=== PATIENT | female | born 1960 | race Caucasian/White ===

== ENCOUNTER → 2017-08-17 | Outpatient (CLI) | payer MEDICARE, MEDICAID ==
[2017-08-17 14:52] LABS: BASO % 0.4 % (0.0-1.0); EOS # 0.1 10^3/uL (0.0-0.50); EOS % 2.4 % (0.0-3.0); HEMATOCRIT 39.7 % (36.0-47.0); HEMOGLOBIN 13.4 g/dl (12.0-16.0); IMMATURE GRANULOCYTE % 0.4 % (0-0); LYMPH # 1.2 10^3/uL (1.5-4.5); LYMPH % 25.8 % (24.0-44.0); MEAN CORPUSCULAR HEMOGLOBIN 31.7 pg (27.0-33.0); MEAN CORPUSCULAR HGB CONC 33.8 g/dl (32.0-36.5); MEAN CORPUSCULAR VOLUME 93.9 fl (80.0-96.0); MONO # 0.5 10^3/uL (0.0-0.8); MONO % 10.7 % (0.0-5.0); NEUTROPHILS # 2.7 10^3/uL (1.8-7.7); NEUTROPHILS % 60.3 % (36.0-66.0); PLATELET COUNT, AUTOMATED 333 10^3/uL (150-450); RED BLOOD COUNT 4.23 10^6/uL (4.00-5.40); RED CELL DISTRIBUTION WIDTH 12.9 % (11.5-14.5); WHITE BLOOD COUNT 4.5 10^3/uL (4.0-10.0)
[2017-08-17 15:22] LABS: ALBUMIN 3.9 GM/DL (3.2-5.2); ALBUMIN/GLOBULIN RATIO 1.08 (1.00-1.93); ALKALINE PHOSPHATASE 114 U/L (45-117); ALT/SGPT 15 U/L (12-78); ANION GAP 6 MEQ/L (8-16); AST/SGOT 14 U/L (7-37); BILIRUBIN,TOTAL 0.4 MG/DL (0.2-1.0); BLOOD UREA NITROGEN 21 MG/DL (7-18); CALCIUM LEVEL 9.8 MG/DL (8.5-10.1); CARBON DIOXIDE LEVEL 29 MEQ/L (21-32); CHLORIDE LEVEL 106 MEQ/L (98-107); CREATININE FOR GFR 1.12 MG/DL (0.55-1.02); GLOMERULAR FILTRATION RATE 53.2 (>51); GLUCOSE, FASTING 93 MG/DL (70-100); SODIUM LEVEL 141 MEQ/L (136-145); TOTAL PROTEIN 7.5 GM/DL (6.4-8.2)
== END ==
LOC: M LAB 14:16
DX: C50.919 Malignant neoplasm of unspecified site of unspecified female breast (principal)
CPT/HCPCS: 80053

== ENCOUNTER 2017-08-25 19:23 | Emergency (ER) | payer MEDICARE, MEDICAID ==
[2017-08-25 21:47] LABS: BASO % 0.2 % (0.0-1.0); HEMOGLOBIN 12.3 g/dl (12.0-16.0); IMMATURE GRANULOCYTE # 0.1 10^3/uL (0-0); IMMATURE GRANULOCYTE % 0.5 % (0-0); LYMPH # 0.6 10^3/uL (1.5-4.5); LYMPH % 5.5 % (24.0-44.0); MEAN CORPUSCULAR HEMOGLOBIN 31.5 pg (27.0-33.0); MEAN CORPUSCULAR HGB CONC 33.2 g/dl (32.0-36.5); MEAN CORPUSCULAR VOLUME 94.6 fl (80.0-96.0); MONO # 0.4 10^3/uL (0.0-0.8); MONO % 3.2 % (0.0-5.0); NEUTROPHILS % 90.6 % (36.0-66.0); PLATELET COUNT, AUTOMATED 254 10^3/uL (150-450); RED BLOOD COUNT 3.91 10^6/uL (4.00-5.40); RED CELL DISTRIBUTION WIDTH 13.2 % (11.5-14.5)
[2017-08-25 22:07] LABS: ALBUMIN 3.4 GM/DL (3.2-5.2); ALBUMIN/GLOBULIN RATIO 0.77 (1.00-1.93); ALKALINE PHOSPHATASE 93 U/L (45-117); ALT/SGPT 13 U/L (12-78); ANION GAP 8 MEQ/L (8-16); AST/SGOT 12 U/L (7-37); BILIRUBIN,TOTAL 0.4 MG/DL (0.2-1.0); BLOOD UREA NITROGEN 18 MG/DL (7-18); CALCIUM LEVEL 9.2 MG/DL (8.5-10.1); CARBON DIOXIDE LEVEL 27 MEQ/L (21-32); CHLORIDE LEVEL 98 MEQ/L (98-107); CREATININE FOR GFR 1.26 MG/DL (0.55-1.30); GLOMERULAR FILTRATION RATE 46.4 (>51); GLUCOSE, FASTING 101 MG/DL (70-100); POTASSIUM SERUM 3.8 MEQ/L (3.5-5.1); SODIUM LEVEL 133 MEQ/L (136-145); TOTAL PROTEIN 7.8 GM/DL (6.4-8.2)
[2017-08-25 22:11] LABS: ERYTHROCYTE SEDIMENTATION RATE 57 mm/hr (0-30)
[2017-08-25] MEDS: CEPHALEXIN 500 MG CAP PO (22:50)
== END 2017-08-25 22:55 | disposition home or self-care (01) ==
LOC: M ED 19:23
DX: I97.2 Postmastectomy lymphedema syndrome (principal); Z85.3 Personal history of malignant neoplasm of breast; F17.200 Nicotine dependence, unspecified, uncomplicated; Z79.899 Other long term (current) drug therapy
CPT/HCPCS: 93971

== ENCOUNTER → 2018-06-23 | Outpatient (CLI) | payer MEDICARE, MEDICAID ==
[2018-06-23 10:36] LABS: BASO % 0.4 % (0.0-1.0); EOS # 0.1 10^3/uL (0.0-0.50); EOS % 2.5 % (0.0-3.0); HEMOGLOBIN 12.7 g/dl (12.0-15.5); IMMATURE GRANULOCYTE % 0.4 % (0-3.0); LYMPH # 1.3 10^3/uL (1.5-4.5); LYMPH % 23.3 % (24.0-44.0); MEAN CORPUSCULAR HGB CONC 33.4 g/dl (32.0-36.5); MEAN CORPUSCULAR VOLUME 95.7 fl (80.0-96.0); MONO # 0.6 10^3/uL (0.0-0.8); MONO % 10.5 % (0.0-5.0); NEUTROPHILS # 3.6 10^3/uL (1.8-7.7); NEUTROPHILS % 62.9 % (36.0-66.0); PLATELET COUNT, AUTOMATED 307 10^3/uL (150-450); RED BLOOD COUNT 3.97 10^6/uL (4.00-5.40); RED CELL DISTRIBUTION WIDTH 12.1 % (11.5-14.5); WHITE BLOOD COUNT 5.6 10^3/uL (4.0-10.0)
[2018-06-23 11:11] LABS: ALBUMIN 3.3 GM/DL (3.2-5.2); ALKALINE PHOSPHATASE 104 U/L (45-117); ALT/SGPT 12 U/L (12-78); ANION GAP 6 MEQ/L (8-16); AST/SGOT 11 U/L (7-37); BILIRUBIN,TOTAL 0.2 MG/DL (0.2-1.0); BLOOD UREA NITROGEN 19 MG/DL (7-18); CALCIUM LEVEL 8.7 MG/DL (8.5-10.1); CARBON DIOXIDE LEVEL 29 MEQ/L (21-32); CHLORIDE LEVEL 106 MEQ/L (98-107); CREATININE FOR GFR 0.95 MG/DL (0.55-1.30); GLOMERULAR FILTRATION RATE > 60.0 (>51); GLUCOSE, FASTING 97 MG/DL (70-100); POTASSIUM SERUM 4.3 MEQ/L (3.5-5.1); SODIUM LEVEL 141 MEQ/L (136-145); TOTAL PROTEIN 6.6 GM/DL (6.4-8.2)
== END ==
LOC: M LAB 08:52
DX: C50.919 Malignant neoplasm of unspecified site of unspecified female breast (principal)
CPT/HCPCS: 80053

== ENCOUNTER → 2018-10-18 | Outpatient (CLI) | payer MEDICARE, MEDICAID ==
[~2018-10-18] MED LIST: ANAS1TAB2; CALCTAB28 PO; KEFL500C17 PO; TYLE500T78 PO
--- NOTE | 2018-10-18 14:19 | REP ---
Clinical: Right knee pain Technique: AP, lateral, bilateral oblique and sunrise views. Findings: The osseous structures and joint spaces are intact and normal for age. There is no evidence for acute fracture or dislocation. No joint effusion is appreciated. Surrounding soft tissues are unremarkable. No subcutaneous emphysema or radiodense foreign body. Impression: Age-appropriate examination. No overt osteoarthritic degenerative changes are appreciated. Electronically Signed by Cooper Machado MD 10/18/2018 02:10 P
== END ==
LOC: M WUC 13:42
PROVIDERS: ATTEND Internal Medicine
DX: M25.561 Pain in right knee (principal)

== ENCOUNTER → 2018-11-04 | Outpatient (CLI) | payer MEDICARE, MEDICAID ==
[2018-11-04 17:36] LABS: ALBUMIN 3.6 GM/DL (3.2-5.2); ALT/SGPT 15 U/L (12-78); BILIRUBIN,TOTAL 0.3 MG/DL (0.2-1.0); BLOOD UREA NITROGEN 17 MG/DL (7-18); CALCIUM LEVEL 9.4 MG/DL (8.5-10.1); CARBON DIOXIDE LEVEL 27 MEQ/L (21-32); CHLORIDE LEVEL 107 MEQ/L (98-107); GLOMERULAR FILTRATION RATE > 60.0 (>51); GLUCOSE, FASTING 91 MG/DL (70-100); SODIUM LEVEL 140 MEQ/L (136-145)
[2018-11-04 17:37] LABS: BASO % 0.3 % (0.0-1.0); EOS # 0.2 10^3/uL (0.0-0.50); EOS % 2.2 % (0.0-3.0); HEMATOCRIT 37.8 % (36.0-47.0); HEMOGLOBIN 12.6 g/dl (12.0-15.5); LYMPH # 1.3 10^3/uL (1.5-4.5); LYMPH % 18.9 % (24.0-44.0); MEAN CORPUSCULAR HEMOGLOBIN 31.7 pg (27.0-33.0); MEAN CORPUSCULAR HGB CONC 33.3 g/dl (32.0-36.5); MEAN CORPUSCULAR VOLUME 95.2 fl (80.0-96.0); MONO # 0.6 10^3/uL (0.0-0.8); MONO % 9.2 % (0.0-5.0); NEUTROPHILS # 4.7 10^3/uL (1.8-7.7); NEUTROPHILS % 68.4 % (36.0-66.0); PLATELET COUNT, AUTOMATED 350 10^3/uL (150-450); RED BLOOD COUNT 3.97 10^6/uL (4.00-5.40); WHITE BLOOD COUNT 6.8 10^3/uL (4.0-10.0)
== END ==
LOC: M WUC 14:03
PROVIDERS: ATTEND Internal Medicine
DX: C50.919 Malignant neoplasm of unspecified site of unspecified female breast (principal); Z81.0 Family history of intellectual disabilities

== ENCOUNTER → 2018-11-10 | Outpatient (CLI) | payer MEDICARE, MEDICAID ==
[~2018-11-10] MED LIST changes: +ISOVUE-370 76% 100ML VIAL (Q9967) As Ordered ONE
--- NOTE | 2018-11-11 08:17 | REP ---
CT HEAD WITHOUT AND WITH CONTRAST: HISTORY: Headache. CONTRAST: Isovue 370, 75 mL. The patient is status post right temporoparietal craniotomy. An area of decreased attenuation is present in the right temporal lobe. There is dilatation of the overlying cortical sulci and body , atrium and temporal horn of the right lateral ventricle. This represents encephalomalacia. There is no intraparenchymal hemorrhage, mass or midline shift. There is no abnormal enhancement. There is no hydrocephalus or extracerebral collection. The visualized sinuses are clear. IMPRESSION: Right temporal lobe encephalomalacia. Electronically Signed by Anderson Harper MD 11/11/2018 08:22 A
== END ==
LOC: M RAD 17:02
PROVIDERS: ATTEND Internal Medicine
DX: G93.89 Other specified disorders of brain (principal); Z85.3 Personal history of malignant neoplasm of breast
CPT/HCPCS: 70470; Q9967

== ENCOUNTER → 2018-12-06 | Outpatient (CLI) | payer MEDICARE, MEDICAID ==
[~2018-12-06] MED LIST changes: -ISOVUE-370 76% 100ML VIAL (Q9967) As Ordered ONE
[2018-12-06 17:35] LABS: CREATININE FOR GFR 1.08 MG/DL (0.55-1.30); GLOMERULAR FILTRATION RATE 55.3 (>51); THYROID STIMULATING HORMONE 1.53 uIU/ML (0.358-3.740)
== END ==
LOC: M WUC 14:42
PROVIDERS: ATTEND Internal Medicine
DX: F41.1 Generalized anxiety disorder (principal)

== ENCOUNTER → 2018-12-10 | Outpatient (CLI) | payer MEDICARE, MEDICAID ==
[~2018-12-10] MED LIST changes: +PROHANCE 279.3MG/ML 15ML VIAL (A9576) As Ordered ONE
--- NOTE | 2018-12-11 08:15 | REP ---
REASON: Assess for hydronephrosis. PRIORS: None. Right kidney measures 9.1 x 4.9 x 5.2 cm. The renal cortical echoes are normal. Corticomedullary differentiation is preserved. There are no cystic or solid masses. There is no hydronephrosis. The left kidney measures 6.7 x 4.2 x 3.7 cm. There is a large anechoic area to the renal pelvis which measures 5.1 x 4.2 x 4.4 cm. There is no evidence of concomitant caliceal dilatation. This anechoic area cannot be definitively connected to the proximal ureter. IMPRESSION: 1. Atrophic left kidney. 2. Large parapelvic cyst versus chronic hydronephrosis. MRI before and after intravenous Gadolinium is recommended. Electronically Signed by Lazaro Carcamo DO 12/11/2018 08:33 A
--- NOTE | 2018-12-21 11:15 | REP ---
MRI RIGHT KNEE WITH AND WITHOUT CONTRAST: TECHNIQUE: Axial proton density fat saturation, sagittal proton density T2 STIR, water excitation, coronal proton density, proton density fat saturation. T1 fat sat, post IV gadolinium, axial, coronal T1 fat sat with the intravenous administration of 6 mL ProHance. Correlation plain films 10/18/2018 and bone scan 11/16/2018. There is a tear of the posterior horn of a medial meniscus. There is a 4 mm meniscal cyst at the posteromedial margin of that portion of the meniscus. The lateral meniscus is intact. The cruciate and collateral ligaments are intact. The extensor mechanism is intact. Medial and lateral patellar retinacula are intact. There is mild global chondromalacia. There is moderate to severe chondromalacia of the medial patellar facet. An area of serpiginous mixed signal in the posterior aspect of the left medial femoral condyles consistent with an area of bone infarct. No abnormal bone marrow signal activity or bone marrow enhancement is seen. There is a small joint effusion. There is an oval popliteal cyst medially measuring approximately 3.8 x 1.5 x 2.8 cm. No abnormal soft tissue enhancement is seen. IMPRESSION: Tear of the posterior horn of the medial meniscus. There is a 4 mm meniscal cyst at the posterior margin of this portion of the meniscus. Cruciate and collateral ligaments intact. Mild global chondromalacia. There is moderate to severe chondromalacia of the medial patellar facet. Small bone infarct, posterior aspect of medial femoral condyle. Small joint effusion. Popliteal cyst. Please note this study is limited due to patient motion. Electronically Signed by Anderson Sabillon MD 12/21/2018 04:13 P
== END ==
LOC: M RAD 16:30
PROVIDERS: ATTEND Internal Medicine
DX: M23.000 Cystic meniscus, unspecified lateral meniscus, right knee (principal); M94.261 Chondromalacia, right knee; N26.1 Atrophy of kidney (terminal); Z81.0 Family history of intellectual disabilities; C50.919 Malignant neoplasm of unspecified site of unspecified female breast
CPT/HCPCS: 73723; 76775; A9576

== ENCOUNTER → 2019-01-06 | Outpatient (CLI) | payer MEDICARE, MEDICAID ==
[~2019-01-06] MED LIST changes: -PROHANCE 279.3MG/ML 15ML VIAL (A9576) As Ordered ONE
--- NOTE | 2019-01-11 09:52 | DEXA ---
AP SPINE L1 - L4 1.054 -1.1 0.0 LT FEMUR TOTAL 0.849 -1.3 -0.4 LT NECK 0.762 -2.0 -0.8 RT FEMUR TOTAL 0.889 -0.9 0.0 RT NECK 0.808 -1.7 -0.4 TOTAL BODY TOTAL OTHER COMMENTS: There is low bone density of the spine and hips. The density of the spine has increased 5.6% since the initial exam on 07/16/2015. The spine density has decreased 2.2% since the most recent exam on or 11/13/2016. The density of the left hip has increased 3.8% since the initial exam on 08/16/2014. The density of the left hip has increased 1.1% since the recent exam on 11/13/2016 The density of the right hip has increased 7.2% since the initial exam on 08/16/2014. The density of the right hip has increased 8.7% since the most recent exam on 11/13/2016. FOLLOW-UP: Recommendation for the next bone density exam: 2 years. MARIBEL
== END ==
LOC: M WHC 09:27
PROVIDERS: ATTEND Physician Assistant
DX: C50.919 Malignant neoplasm of unspecified site of unspecified female breast (principal); M81.0 Age-related osteoporosis without current pathological fracture

== ENCOUNTER → 2019-03-11 | Outpatient (CLI) | payer MEDICARE, MEDICAID ==
[2019-03-11 17:11] LABS: CALCIUM LEVEL 9.2 MG/DL (8.5-10.1); CREATININE FOR GFR 1.11 MG/DL (0.55-1.30); GLOMERULAR FILTRATION RATE 53.6 (>51); POTASSIUM SERUM 4.4 MEQ/L (3.5-5.1)
== END ==
LOC: M WUC 13:21
PROVIDERS: ATTEND Nurse Practitioner Women's Health
DX: Q61.00 Congenital renal cyst, unspecified (principal); N26.1 Atrophy of kidney (terminal)

== ENCOUNTER → 2019-03-16 | Outpatient (CLI) | payer MEDICARE, MEDICAID ==
[~2019-03-16] MED LIST changes: +ISOVUE-370 76% 100ML VIAL (Q9967) As Ordered ONE
--- NOTE | 2019-03-16 11:35 | REP ---
REASON FOR EXAM: History of renal atrophy. I have no priors for comparison. There is no common view available at this time for review of outside priors if available. If and when outside priors become available an addendum report will be made if necessary. CONTRAST: [address] urogram was obtained with post processing at the physician workstation. The lung bases show minimal inferior right middle lobe fibrotic changes. The precontrast enhanced portion of the examination shows no evidence of nephroureterolithiasis. There are no choleliths. There are no urinary or bladder calcifications. There are bilateral pelvic phleboliths. There is a large low density structure arising from the inferior pole of the left kidney which measures 4.4 cm and has water Hounsfield unit readings. The contrast enhanced portion of the exam shows no evidence of an enhancing renal mass. There is evidence of mild left renal cortical thinning. The liver, gallbladder, spleen, pancreas, and adrenal glands are within normal limits. The abdominal aorta and paraaortic regions are within normal limits. There is no free fluid or free air. The bowel loops and their mesenteries are within normal limits. There is no evidence of an intra-abdominal mass or adenopathy. CT urogram shows no hydronephrosis. The lower ureters were not imaged on either side. There is no hydronephrosis. There is some deformation of the left renal lower collecting system due to the large cyst. Incidental note is made of a subcentimeter sized cyst in the superior pole of the left kidney as well. IMPRESSION: 1. There are no enhancing renal masses. 2. There are no urinary tract calcifications. 3. There is a large left renal cyst which is of Bosniak class I characterization. There is some left renal cortical thinning. The large cyst does somewhat compress the left renal pelvis. 4. No acute intra-abdominal or intrapelvic disease with findings as described above. Electronically Signed by Lazaro Carcamo DO 03/16/2019 12:39 P
== END ==
LOC: M RAD 08:35
PROVIDERS: ATTEND Nurse Practitioner Women's Health
DX: N28.81 Hypertrophy of kidney (principal); N28.1 Cyst of kidney, acquired
CPT/HCPCS: 74178; Q9967

== ENCOUNTER → 2020-05-07 | Outpatient (CLI) | payer MEDICARE, MEDICAID ==
[~2020-05-07] MED LIST changes: -ISOVUE-370 76% 100ML VIAL (Q9967) As Ordered ONE
[2020-05-07 12:46] LABS: BASO % 0.3 % (0.0-1.0); EOS # 0.2 10^3/uL (0.0-0.5); EOS % 2.4 % (0.0-3.0); HEMATOCRIT 37.7 % (36.0-47.0); HEMOGLOBIN 12.2 g/dl (12.0-15.5); LYMPH # 1.6 10^3/uL (1.5-5.0); LYMPH % 22.2 % (24.0-44.0); MEAN CORPUSCULAR HEMOGLOBIN 30.8 pg (27.0-33.0); MEAN CORPUSCULAR HGB CONC 32.4 g/dl (32.0-36.5); MEAN CORPUSCULAR VOLUME 95.2 fl (80.0-96.0); MONO # 0.8 10^3/uL (0.0-0.8); MONO % 11.9 % (0.0-5.0); NEUTROPHILS # 4.4 10^3/uL (1.5-8.5); NEUTROPHILS % 62.8 % (36.0-66.0); PLATELET COUNT, AUTOMATED 336 10^3/uL (150-450); RED BLOOD COUNT 3.96 10^6/uL (4.00-5.40)
[2020-05-07 13:08] LABS: ALBUMIN 3.4 GM/DL (3.2-5.2); BILIRUBIN,TOTAL 0.2 MG/DL (0.2-1.0); CALCIUM LEVEL 9.2 MG/DL (8.8-10.2); CREATININE FOR GFR 1.16 MG/DL (0.55-1.30); GLOMERULAR FILTRATION RATE 50.7 (>45); POTASSIUM SERUM 3.7 MEQ/L (3.5-5.1); TOTAL PROTEIN 6.7 GM/DL (6.4-8.2)
[2020-05-07 13:55] LABS: CA15-3 ANTIGEN 11.9 U/ML (<32.4)
== END ==
LOC: M WUC 09:05
PROVIDERS: ATTEND Internal Medicine Hematology & Oncology
DX: C50.919 Malignant neoplasm of unspecified site of unspecified female breast (principal); Z81.0 Family history of intellectual disabilities

== ENCOUNTER 2020-09-28 10:37 | Emergency (ER) | payer MEDICARE, MEDICAID ==
[~2020-09-28] VITALS: Ht 165.1 cm; Wt 70.7 kg
[2020-09-28] MEDS ORDERED: IBUP200T45 PO (11:13)
[2020-09-28] MEDS ORDERED: ATEN25TA PO (11:13)
[2020-09-28] MEDS: KETOROLAC TROMETHAMINE 10 MG TAB PO ONE ×2 (11:48→11:49)
[2020-09-28 11:51] LABS: BASO % 0.6 % (0.0-1.0); EOS # 0.2 10^3/uL (0.0-0.5); HEMATOCRIT 36.8 % (36.0-47.0); HEMOGLOBIN 12.4 g/dl (12.0-15.5); LYMPH # 1.1 10^3/uL (1.5-5.0); LYMPH % 21.6 % (24.0-44.0); MEAN CORPUSCULAR HEMOGLOBIN 31.7 pg (27.0-33.0); MEAN CORPUSCULAR HGB CONC 33.7 g/dl (32.0-36.5); MEAN CORPUSCULAR VOLUME 94.1 fl (80.0-96.0); MONO # 0.7 10^3/uL (0.0-0.8); MONO % 14.6 % (2.0-8.0); NEUTROPHILS % 59.8 % (36.0-66.0); PLATELET COUNT, AUTOMATED 328 10^3/uL (150-450); RED BLOOD COUNT 3.91 10^6/uL (4.00-5.40)
--- NOTE | 2020-09-28 12:07 | REP ---
INDICATION: hip pain COMPARISON: None. TECHNIQUE: AP and frog-lateral views of the left hip FINDINGS: No acute fracture or dislocation. Skeletal structures, joint spaces, and surrounding soft tissues are age-appropriate. IMPRESSION: Age-appropriate left hip radiographs. <Electronically signed by Cooper Machado > 09/28/20 [id number]
[2020-09-28] MEDS ORDERED: CYCL5TAB PO (12:40)
[2020-09-28 13:00] VITALS: BP 144/87
== END 2020-09-28 13:01 | disposition home or self-care (01) ==
LOC: M ED 10:37
DX: M54.32 Sciatica, left side (principal); M16.12 Unilateral primary osteoarthritis, left hip; S76.012A Strain of muscle, fascia and tendon of left hip, initial encounter; X58.XXXA Exposure to other specified factors, initial encounter; Y92.9 Unspecified place or not applicable; Y93.9 Activity, unspecified; Y99.9 Unspecified external cause status; I10 Essential (primary) hypertension; E78.5 Hyperlipidemia, unspecified; F17.200 Nicotine dependence, unspecified, uncomplicated; Z79.899 Other long term (current) drug therapy

== ENCOUNTER → 2020-11-12 | Outpatient (CLI) | payer MEDICARE, MEDICAID ==
[~2020-11-12] MED LIST changes: +ATEN25TA PO; +CYCL5TAB PO; +IBUP200T45 PO
[2020-11-12 09:57] LABS: APPEARANCE, URINE CLEAR (CLEAR); BACTERIA, URINE AUTO NEGATIVE (NEGATIVE); BILIRUBIN, URINE AUTO NEGATIVE (NEGATIVE); BLOOD, URINE BLOOD NEGATIVE (NEGATIVE); COLOR, URINE YELLOW (YELLOW); GLUCOSE, URINE (UA) AUTO NEGATIVE (NEGATIVE); KETONE, URINE AUTO NEGATIVE (NEGATIVE); LEUKOCYTE ESTERASE, URINE AUTO 3+ (NEGATIVE); NITRITE, URINE AUTO NEGATIVE (NEGATIVE); PROTEIN, URINE AUTO NEGATIVE (NEGATIVE); RBC, URINE AUTO 2 /HPF (0-3); SPECIFIC GRAVITY URINE AUTO 1.015 (1.002-1.035); UROBILINOGEN, URINE AUTO 0.2 mg/dL (0.0-2.0); WBC, URINE AUTO 26 /HPF (0-3)
[2020-11-12 09:58] LABS: SQUAMOUS EPITHELIAL CELL UR AU 0 /HPF (0-6)
[2020-11-12 10:09] LABS: HEMATOCRIT 39.5 % (36.0-47.0); HEMOGLOBIN 12.6 g/dl (12.0-15.5); MEAN CORPUSCULAR HGB CONC 31.9 g/dl (32.0-36.5); MEAN CORPUSCULAR VOLUME 97.3 fl (80.0-96.0); PLATELET COUNT, AUTOMATED 346 10^3/uL (150-450); RED BLOOD COUNT 4.06 10^6/uL (4.00-5.40); WHITE BLOOD COUNT 6.8 10^3/uL (4.0-10.0)
[2020-11-12 10:31] LABS: ALBUMIN 3.4 GM/DL (3.2-5.2); BILIRUBIN,TOTAL 0.4 MG/DL (0.2-1.0); CALCIUM LEVEL 10.2 MG/DL (8.8-10.2); CHOLESTEROL RISK RATIO 5.418 (<5); CREATININE FOR GFR 1.03 MG/DL (0.55-1.30); POTASSIUM SERUM 4.9 MEQ/L (3.5-5.1); THYROID STIMULATING HORMONE 3.97 uIU/ML (0.358-3.740); TOTAL PROTEIN 6.7 GM/DL (6.4-8.2)
== END ==
LOC: M WUC 08:26
PROVIDERS: ATTEND Internal Medicine
DX: E78.00 Pure hypercholesterolemia, unspecified (principal); I10 Essential (primary) hypertension; C50.919 Malignant neoplasm of unspecified site of unspecified female breast; F17.200 Nicotine dependence, unspecified, uncomplicated; J32.9 Chronic sinusitis, unspecified; B37.0 Candidal stomatitis; N76.1 Subacute and chronic vaginitis

== ENCOUNTER → 2021-07-08 | Outpatient (CLI) | payer MEDICARE, MEDICAID ==
[~2021-07-08] MED LIST changes: -IBUP200T45 PO; +IBUP200T46 PO
== END ==
LOC: M WHC 08:32
PROVIDERS: ATTEND Internal Medicine Hematology & Oncology
DX: M85.88 Other specified disorders of bone density and structure, other site (principal); R10.2 Pelvic and perineal pain; R30.0 Dysuria; C50.919 Malignant neoplasm of unspecified site of unspecified female breast; Z81.0 Family history of intellectual disabilities

== ENCOUNTER → 2021-07-15 | Outpatient (CLI) | payer MEDICARE, MEDICAID | LOC: M WUC 08:26 | PROVIDERS: ATTEND Internal Medicine Hematology & Oncology | DX: C50.919 Malignant neoplasm of unspecified site of unspecified female breast (principal); R10.2 Pelvic and perineal pain; R30.0 Dysuria; Z81.0 Family history of intellectual disabilities ==

== ENCOUNTER → 2022-01-13 | Outpatient (CLI) | payer MEDICARE, MEDICAID ==
[2022-01-13 15:38] LABS: BASO % 0.5 % (0.0-1.0); EOS # 0.1 10^3/uL (0.0-0.5); EOS % 2.5 % (0.0-3.0); HEMATOCRIT 38.5 % (36.0-47.0); HEMOGLOBIN 12.7 g/dl (12.0-15.5); LYMPH # 1.3 10^3/uL (1.5-5.0); LYMPH % 24.1 % (24.0-44.0); MEAN CORPUSCULAR HEMOGLOBIN 31.1 pg (27.0-33.0); MEAN CORPUSCULAR VOLUME 94.1 fl (80.0-96.0); MONO # 0.6 10^3/uL (0.0-0.8); MONO % 10.6 % (2.0-8.0); NEUTROPHILS # 3.4 10^3/uL (1.5-8.5); NEUTROPHILS % 61.9 % (36.0-66.0); PLATELET COUNT, AUTOMATED 460 10^3/uL (150-450); RED BLOOD COUNT 4.09 10^6/uL (4.00-5.40); WHITE BLOOD COUNT 5.6 10^3/uL (4.0-10.0)
[2022-01-13 15:56] LABS: CREATININE FOR GFR 1.03 MG/DL (0.55-1.30); GLOMERULAR FILTRATION RATE 57.8 (>45); POTASSIUM SERUM 4.6 MEQ/L (3.5-5.1)
[2022-01-13 15:57] LABS: ALBUMIN 3.3 GM/DL (3.2-5.2); BILIRUBIN,TOTAL 0.2 MG/DL (0.2-1.0); CALCIUM LEVEL 10.2 MG/DL (8.8-10.2); TOTAL PROTEIN 7.4 GM/DL (6.4-8.2)
[2022-01-13 16:49] LABS: CA15-3 ANTIGEN 13.1 U/ML (<32.4)
== END ==
LOC: M LAB 14:32
PROVIDERS: ATTEND Internal Medicine Hematology & Oncology
DX: R10.2 Pelvic and perineal pain (principal); R30.0 Dysuria; C50.919 Malignant neoplasm of unspecified site of unspecified female breast; Z81.0 Family history of intellectual disabilities

== ENCOUNTER → 2022-02-11 | Outpatient (CLI) | payer MEDICARE, MEDICAID ==
[~2022-02-11] MED LIST changes: +GASTROGRAFIN SOLUTION 30ML (Q9963) As Ordered ONE; +ISOVUE-370 76% 100ML VIAL As Ordered ONE
== END ==
LOC: M RAD 11:17
PROVIDERS: ATTEND Internal Medicine Hematology & Oncology
DX: K75.3 Granulomatous hepatitis, not elsewhere classified (principal); J84.10 Pulmonary fibrosis, unspecified; N28.1 Cyst of kidney, acquired; R10.2 Pelvic and perineal pain; R30.0 Dysuria; C50.919 Malignant neoplasm of unspecified site of unspecified female breast; Z81.0 Family history of intellectual disabilities
CPT/HCPCS: 74170; Q9963; Q9967

== ENCOUNTER → 2022-03-04 | Outpatient (CLI) | payer MEDICARE, MEDICAID ==
[~2022-03-04] MED LIST changes: -GASTROGRAFIN SOLUTION 30ML (Q9963) As Ordered ONE; -ISOVUE-370 76% 100ML VIAL As Ordered ONE
[2022-03-04 10:01] LABS: BASO % 0.5 % (0.0-1.0); EOS # 0.2 10^3/uL (0.0-0.5); EOS % 3.3 % (0.0-3.0); HEMATOCRIT 35.5 % (36.0-47.0); HEMOGLOBIN 11.5 g/dl (12.0-15.5); LYMPH # 1.7 10^3/uL (1.5-5.0); LYMPH % 29.5 % (24.0-44.0); MEAN CORPUSCULAR HEMOGLOBIN 30.7 pg (27.0-33.0); MEAN CORPUSCULAR HGB CONC 32.4 g/dl (32.0-36.5); MEAN CORPUSCULAR VOLUME 94.7 fl (80.0-96.0); MONO # 0.6 10^3/uL (0.0-0.8); MONO % 11.2 % (2.0-8.0); NEUTROPHILS # 3.2 10^3/uL (1.5-8.5); NEUTROPHILS % 55.3 % (36.0-66.0); PLATELET COUNT, AUTOMATED 407 10^3/uL (150-450); RED BLOOD COUNT 3.75 10^6/uL (4.00-5.40); WHITE BLOOD COUNT 5.7 10^3/uL (4.0-10.0)
[2022-03-04 10:42] LABS: ALBUMIN 3.2 GM/DL (3.2-5.2); BILIRUBIN,TOTAL 0.2 MG/DL (0.2-1.0); CALCIUM LEVEL 9.5 MG/DL (8.8-10.2); CHOLESTEROL RISK RATIO 6.181 (<5); CREATININE FOR GFR 1.05 MG/DL (0.55-1.30); GLOMERULAR FILTRATION RATE 56.5 (>45); POTASSIUM SERUM 4.4 MEQ/L (3.5-5.1); TOTAL PROTEIN 6.8 GM/DL (6.4-8.2)
== END ==
LOC: M WUC 08:14
PROVIDERS: ATTEND Student in an Organized Health Care Education/Training Program
DX: Z00.00 Encounter for general adult medical examination without abnormal findings (principal)

== ENCOUNTER → 2022-10-16 | Outpatient (CLI) | payer MEDICARE, MEDICAID | LOC: M WHC 07:29 | PROVIDERS: ATTEND Internal Medicine Hematology & Oncology | DX: C50.919 Malignant neoplasm of unspecified site of unspecified female breast (principal); R10.2 Pelvic and perineal pain; R30.0 Dysuria ==

== ENCOUNTER → 2022-11-03 | Outpatient (CLI) | payer MEDICARE, MEDICAID ==
[2022-11-03 10:48] LABS: BASO % 0.4 % (0.0-1.0); EOS # 0.2 10^3/uL (0.0-0.5); HEMATOCRIT 37.4 % (36.0-47.0); LYMPH # 1.6 10^3/uL (1.5-5.0); LYMPH % 16.8 % (24.0-44.0); MEAN CORPUSCULAR HEMOGLOBIN 30.7 pg (27.0-33.0); MEAN CORPUSCULAR HGB CONC 32.1 g/dl (32.0-36.5); MEAN CORPUSCULAR VOLUME 95.7 fl (80.0-96.0); MONO # 0.8 10^3/uL (0.0-0.8); MONO % 8.4 % (2.0-8.0); NEUTROPHILS % 72.1 % (36.0-66.0); PLATELET COUNT, AUTOMATED 315 10^3/uL (150-450); RED BLOOD COUNT 3.91 10^6/uL (4.00-5.40); WHITE BLOOD COUNT 9.7 10^3/uL (4.0-10.0)
[2022-11-03 10:58] LABS: APPEARANCE, URINE CLEAR (CLEAR); BACTERIA, URINE AUTO 1+ (NEGATIVE); BILIRUBIN, URINE AUTO NEGATIVE (NEGATIVE); BLOOD, URINE BLOOD NEGATIVE (NEGATIVE); COLOR, URINE YELLOW (YELLOW); GLUCOSE, URINE (UA) AUTO NEGATIVE (NEGATIVE); KETONE, URINE AUTO NEGATIVE (NEGATIVE); LEUKOCYTE ESTERASE, URINE AUTO 3+ (NEGATIVE); NITRITE, URINE AUTO NEGATIVE (NEGATIVE); PROTEIN, URINE AUTO NEGATIVE (NEGATIVE); RBC, URINE AUTO 2 /HPF (0-3); SPECIFIC GRAVITY URINE AUTO 1.016 (1.002-1.035); SQUAMOUS EPITHELIAL CELL UR AU 0 /HPF (0-6); UROBILINOGEN, URINE AUTO 0.2 mg/dL (0.0-2.0); WBC, URINE AUTO 22 /HPF (0-3)
[2022-11-03 10:59] LABS: ERYTHROCYTE SEDIMENTATION RATE 30 mm/hr (0-30)
[2022-11-03 11:12] LABS: ALBUMIN 3.1 G/DL (3.2-5.2); ALKALINE PHOSPHATASE 91 U/L (46-116); ALT/SGPT < 9 U/L (7.0-40); AST/SGOT < 8 U/L (<34); BILIRUBIN,TOTAL 0.2 MG/DL (0.3-1.2); BLOOD UREA NITROGEN 23 MG/DL (9-23); CARBON DIOXIDE LEVEL 30 MMOL/L (20-31); CHLORIDE LEVEL 104 MMOL/L (98-107); CREATININE FOR GFR 1.08 MG/DL (0.55-1.30); GLOMERULAR FILTRATION RATE 54.5 (>45); GLUCOSE, FASTING 79 MG/DL (74-106); IRON (FE) 65 UG/DL (50-170); PERCENT SATURATION 20.7 % (13.2-45.0); POTASSIUM SERUM 4.8 MMOL/L (3.5-5.1); SODIUM LEVEL 140 MMOL/L (136-145); TOTAL IRON BINDING CAPACITY 314 UG/DL (250-425); TOTAL PROTEIN 6.1 G/DL (5.7-8.2)
[2022-11-03 11:14] LABS: FERRITIN 111.2 NG/ML (7.3-270.7); THYROID STIMULATING HORMONE 3.009 uIU/ML (0.55-4.78)
== END ==
LOC: M WUC 08:13
PROVIDERS: ATTEND Internal Medicine Hematology & Oncology
DX: C50.919 Malignant neoplasm of unspecified site of unspecified female breast (principal); R10.2 Pelvic and perineal pain; R30.0 Dysuria

== ENCOUNTER → 2022-11-04 | Outpatient (CLI) | payer MEDICARE, MEDICAID | LOC: M RAD 08:31 | PROVIDERS: ATTEND Internal Medicine Hematology & Oncology | DX: R10.2 Pelvic and perineal pain (principal); R30.0 Dysuria; C50.919 Malignant neoplasm of unspecified site of unspecified female breast; Z87.891 Personal history of nicotine dependence; Z81.0 Family history of intellectual disabilities ==

== ENCOUNTER → 2023-09-04 | Outpatient (CLI) | payer MEDICARE, MEDICAID | LOC: M WHC 12:57 | PROVIDERS: ATTEND Internal Medicine Hematology & Oncology | DX: Z12.31 Encounter for screening mammogram for malignant neoplasm of breast (principal); Z85.3 Personal history of malignant neoplasm of breast; R10.2 Pelvic and perineal pain; R30.0 Dysuria; Z87.891 Personal history of nicotine dependence | CPT/HCPCS: 77067; G0279 ==

== ENCOUNTER → 2023-12-07 | Outpatient (CLI) | payer MEDICARE, MEDICAID ==
[~2023-12-07] MED LIST changes: +ANAS1TAB2 PO; +OMEP40CA4 PO; +OMEP40CA5
== END ==
LOC: M PLAIMG 07:31
PROVIDERS: ATTEND Internal Medicine Hematology & Oncology
DX: R91.8 Other nonspecific abnormal finding of lung field (principal); R51.9 Headache, unspecified; G93.89 Other specified disorders of brain; Z13.820 Encounter for screening for osteoporosis; M85.851 Other specified disorders of bone density and structure, right thigh; M85.852 Other specified disorders of bone density and structure, left thigh

== ENCOUNTER → 2023-12-07 | Outpatient (CLI) | payer MEDICARE, MEDICAID | LOC: M WHC 07:32 | PROVIDERS: ATTEND Internal Medicine Hematology & Oncology | DX: Z13.820 Encounter for screening for osteoporosis (principal); M85.851 Other specified disorders of bone density and structure, right thigh; M85.852 Other specified disorders of bone density and structure, left thigh; M85.88 Other specified disorders of bone density and structure, other site ==

== ENCOUNTER → 2024-04-07 | Outpatient (CLI) | payer MEDICARE, MEDICAID | LOC: M CARPUL 07:55 | PROVIDERS: ATTEND Internal Medicine Hematology & Oncology | DX: C50.919 Malignant neoplasm of unspecified site of unspecified female breast (principal) ==

== ENCOUNTER 2024-04-20 16:38 | Emergency (ER) | payer MEDICARE, MEDICAID ==
[~2024-04-20] VITALS: Ht 162.6 cm; Wt 66.3 kg
[2024-04-20] MEDS: DALBAVANCIN 1,500 MG in D5W 250 ML IV ONE (22:45)
[2024-04-20 23:36] VITALS: BP 128/65; TEMP 98.2; O2SAT 98
== END 2024-04-20 23:38 | disposition home or self-care (01) ==
LOC: M ED 16:38
DX: L03.113 Cellulitis of right upper limb (principal); C50.919 Malignant neoplasm of unspecified site of unspecified female breast; I10 Essential (primary) hypertension; E78.5 Hyperlipidemia, unspecified; F17.200 Nicotine dependence, unspecified, uncomplicated; F10.10 Alcohol abuse, uncomplicated; Z79.1 Long term (current) use of non-steroidal anti-inflammatories (NSAID); Z79.899 Other long term (current) drug therapy
CPT/HCPCS: 80047; 86140; 93971; 96374; 99284; J0875

== ENCOUNTER → 2024-08-26 | Outpatient (CLI) | payer MEDICARE, MEDICAID ==
[~2024-08-26] MED LIST changes: -CYCL5TAB PO; +CYCL5TAB4 PO
[2024-08-26 08:52] LABS: BASO % 0.6 % (0.0-1.0); EOS # 0.2 10^3/uL (0.0-0.5); EOS % 3.4 % (0.0-3.0); HEMATOCRIT 39.2 % (36.0-47.0); HEMOGLOBIN 13.3 g/dl (12.0-15.5); LYMPH # 1.1 10^3/uL (1.5-5.0); LYMPH % 16.4 % (24.0-44.0); MEAN CORPUSCULAR HEMOGLOBIN 32.1 pg (27.0-33.0); MEAN CORPUSCULAR HGB CONC 33.9 g/dl (32.0-36.5); MEAN CORPUSCULAR VOLUME 94.7 fl (80.0-96.0); MONO # 0.7 10^3/uL (0.0-0.8); MONO % 10.1 % (2.0-8.0); NEUTROPHILS # 4.5 10^3/uL (1.5-8.5); NEUTROPHILS % 69.2 % (36.0-66.0); PLATELET COUNT, AUTOMATED 329 10^3/uL (150-450); RED BLOOD COUNT 4.14 10^6/uL (4.00-5.40); WHITE BLOOD COUNT 6.5 10^3/uL (4.0-10.0)
[2024-08-26 09:04] LABS: ERYTHROCYTE SEDIMENTATION RATE 52 mm/hr (0-30)
[2024-08-26 09:12] LABS: HEMOGLOBIN A1c 5.4 % (4.0-6.0)
[2024-08-26 09:27] LABS: ALBUMIN 3.4 G/DL (3.2-5.2); BILIRUBIN,TOTAL 0.4 MG/DL (0.3-1.2); C REACTIVE PROTEIN QUANTITATIV 0.76 MG/DL (<1.0); CHOLESTEROL RISK RATIO 5.23 (<5); CREATININE FOR GFR 1.15 MG/DL (0.55-1.30); GLOMERULAR FILTRATION RATE 50.4 (>45); HDL CHOLESTEROL 47.4 MG/DL (>40); NON-HDL-C 200.6 MG/DL; POTASSIUM SERUM 4.3 MMOL/L (3.5-5.1); RHEUMATOID FACTOR QUANT 5.3 IU/ML (<14); TOTAL PROTEIN 6.9 G/DL (5.7-8.2)
[2024-08-26 09:28] LABS: THYROID STIMULATING HORMONE 2.172 uIU/ML (0.55-4.78); TOTAL 25(OH) VITAMIN D 53.1 NG/ML (20.0-100.0)
== END ==
LOC: M LAB 08:01
DX: K21.9 Gastro-esophageal reflux disease without esophagitis (principal); I10 Essential (primary) hypertension; R53.82 Chronic fatigue, unspecified; Z85.3 Personal history of malignant neoplasm of breast

== ENCOUNTER → 2024-09-07 | Outpatient (CLI) | payer MEDICARE, MEDICAID | LOC: M WHC 12:05 | PROVIDERS: ATTEND Internal Medicine Hematology & Oncology | DX: Z12.31 Encounter for screening mammogram for malignant neoplasm of breast (principal); R92.322 Mammographic fibroglandular density, left breast; Z90.11 Acquired absence of right breast and nipple; Z85.3 Personal history of malignant neoplasm of breast ==

== ENCOUNTER → 2024-09-29 | Outpatient (CLI) | payer MEDICARE, MEDICAID | LOC: M WHC 08:54 | PROVIDERS: ATTEND Internal Medicine Hematology & Oncology | DX: R92.2 Inconclusive mammogram (principal) | CPT/HCPCS: 77065; G0279 ==

== ENCOUNTER → 2025-04-11 | Outpatient (REF) | payer MEDICARE, MEDICAID ==
[2025-04-11 16:07] LABS: BASO # 0.0 10^3/uL (0.0-0.2); BASO % 0.5 % (0.0-1.0); EOS # 0.2 10^3/uL (0.0-0.5); EOS % 3.0 % (0.0-3.0); LYMPH # 1.1 10^3/uL (1.5-5.0); LYMPH % 18.3 % (24.0-44.0); MONO # 0.6 10^3/uL (0.0-0.8); MONO % 9.2 % (2.0-8.0); NEUTROPHILS # 4.1 10^3/uL (1.5-8.5); NEUTROPHILS % 68.8 % (36.0-66.0); PLATELET COUNT, AUTOMATED 360 10^3/uL (150-450)
[2025-04-11 16:09] LABS: COMPLEMENT C4 40.9 MG/DL (12-36)
[2025-04-11 16:10] LABS: ALT/SGPT 11.0 U/L (7.0-40); AST/SGOT 17.0 U/L (<34); C REACTIVE PROTEIN QUANTITATIV 1.59 MG/DL (<1.0); CALCIUM LEVEL 10.1 MG/DL (8.3-10.6); CARBON DIOXIDE LEVEL 28.0 MMOL/L (20-31); CHLORIDE LEVEL 105.0 MMOL/L (98-107); CREATININE FOR GFR 1.31 MG/DL (0.55-1.30); GLOMERULAR FILTRATION RATE 45.2 (>45); POTASSIUM SERUM 4.3 MMOL/L (3.5-5.1); SODIUM LEVEL 140.0 MMOL/L (136-145)
[2025-04-11 16:12] LABS: ERYTHROCYTE SEDIMENTATION RATE 62 mm/hr (0-30)
[2025-04-11 16:14] LABS: APPEARANCE, URINE CLEAR (CLEAR); BACTERIA, URINE AUTO NEGATIVE (NEGATIVE); BILIRUBIN, URINE AUTO NEGATIVE (NEGATIVE); BLOOD, URINE BLOOD NEGATIVE (NEGATIVE); GLUCOSE, URINE (UA) AUTO NEGATIVE (NEGATIVE); KETONE, URINE AUTO NEGATIVE (NEGATIVE); LEUKOCYTE ESTERASE, URINE AUTO TRACE (NEGATIVE); NITRITE, URINE AUTO NEGATIVE (NEGATIVE); PROTEIN, URINE AUTO NEGATIVE (NEGATIVE); RBC, URINE AUTO 0 /HPF (0-3); SPECIFIC GRAVITY URINE AUTO 1.012 (1.002-1.035); SQUAMOUS EPITHELIAL CELL UR AU 0 /HPF (0-6); UROBILINOGEN, URINE AUTO 0.2 mg/dL (0.0-2.0); WBC, URINE AUTO 2 /HPF (0-3)
[2025-04-11 16:30] LABS: TOTAL PROTEIN,RANDOM URINE 18.8 MG/DL (0.0-14.0)
== END ==
LOC: M SFHCRHEU 13:11
PROVIDERS: ATTEND Internal Medicine Rheumatology
DX: R76.8 Other specified abnormal immunological findings in serum (principal); R53.83 Other fatigue; R52 Pain, unspecified; R05.3 Chronic cough